=== PATIENT | female | born 1985 | race Caucasian/White ===

== ENCOUNTER 2023-07-09 13:43 | Day surgery (SDC) | payer OTHER ==
[~2023-07-09] VITALS: Ht 160 cm; Wt 59.9 kg
[~2023-07-09 13:43] MED LIST: CITA20TA7 PO
[2023-07-09] MEDS ORDERED: IBUP200T46 PO (14:08)
[2023-07-09] MEDS ORDERED: LR 1,000 ML IV SCH ×3 (15:00→18:10)
[2023-07-09] MEDS ORDERED: ROCURONIUM BROMIDE 50MG/5ML VIAL As Ordered ONE (16:33)
[2023-07-09] MEDS ORDERED: fentaNYL 100 MCG/2 ML INJECTION As Ordered ONE (16:33)
[2023-07-09] MEDS ORDERED: ONDANSETRON 4MG 2ML VIAL As Ordered ONE (16:33)
[2023-07-09] MEDS ORDERED: propofoL 200 MG/20 ML VIAL As Ordered ONE (16:33)
[2023-07-09] MEDS ORDERED: LIDOCAINE 2% 100MG/5ML SDV (FOR ANES.) As Ordered ONE (16:33)
[2023-07-09] MEDS ORDERED: MIDAZOLAM INJ 2MG/2ML VIAL As Ordered ONE (16:33)
[2023-07-09] MEDS ORDERED: SUGAMMADEX SODIUM 500 MG/5 ML VIAL (BRIDION) As Ordered ONE (16:33)
[2023-07-09] MEDS ORDERED: ACETAMINOPHEN 1000MG 100ML IV BAG As Ordered ONE (16:33)
[2023-07-09] MEDS: LIDOCAINE 2% W/ EPINEPHRINE 1.7 ML DENTAL INJ As Ordered ONE (17:14)
[2023-07-09] MEDS: AMPICILLIN SOD/SULBACTAM SOD 3 GM in D5W MINI-BAG PLUS 100 ML IV ONE (17:15)
[2023-07-09] MEDS: IBUPROFEN 800 MG TAB PO ONE (18:05)
[2023-07-09] MEDS ORDERED: METOCLOPRAMIDE INJ 10MG/2ML VIAL As Ordered ONE (18:07)
[2023-07-09] MEDS ORDERED: fentaNYL 100 MCG/2 ML INJECTION IV PRN (18:10)
[2023-07-09] MEDS ORDERED: HYDROMORPHONE HCL 0.5 MG/ 0.5 ML SYRINGE IV PRN (18:10)
[2023-07-09] MEDS ORDERED: ONDANSETRON 4MG 2ML VIAL IV PRN (18:10)
[2023-07-09] MEDS ORDERED: oxyCODONE 5MG TAB PO PRN (18:10)
[2023-07-09 18:55] VITALS: BP 122/89; TEMP 98.1; O2SAT 96
== END 2023-07-09 19:12 | disposition home or self-care (01) ==
LOC: M SDC 13:43
PROVIDERS: ATTEND Dentist
DX: K02.9 Dental caries, unspecified (principal); G40.909 Epilepsy, unspecified, not intractable, without status epilepticus; Z79.899 Other long term (current) drug therapy
CPT/HCPCS: 88300; C9290; D7210; D9223; J0131; J0295; J1100; J2250; J2405; J2765; J3010